=== PATIENT | female | born 2005 | race Caucasian/White ===

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

== ENCOUNTER 2024-06-27 18:51 | Emergency (ER) | payer SELFPAY ==
[~2024-06-27] VITALS: Ht 160 cm; Wt 74.1 kg
[2024-06-27 23:16] LABS: BASO % 0.3 % (0.0-1.0); EOS # 0.4 10^3/uL (0.0-0.5); EOS % 6.2 % (0.0-3.0); HEMATOCRIT 39.8 % (36.0-47.0); HEMOGLOBIN 13.5 g/dl (12.0-15.5); LYMPH # 2.3 10^3/uL (1.5-5.0); MEAN CORPUSCULAR HEMOGLOBIN 30.1 pg (27.0-33.0); MEAN CORPUSCULAR HGB CONC 33.9 g/dl (32.0-36.5); MEAN CORPUSCULAR VOLUME 88.6 fl (80.0-96.0); MONO # 0.5 10^3/uL (0.0-0.8); MONO % 7.2 % (2.0-8.0); NEUTROPHILS # 3.4 10^3/uL (1.5-8.5); PLATELET COUNT, AUTOMATED 302 10^3/uL (150-450); RED BLOOD COUNT 4.49 10^6/uL (4.00-5.40); WHITE BLOOD COUNT 6.7 10^3/uL (4.0-10.0)
[2024-06-27 23:46] LABS: HCG, SERUM QUALITATIVE NEGATIVE (NEGATIVE)
[2024-06-27 23:53] LABS: BLOOD UREA NITROGEN 18 MG/DL (9-23); CALCIUM LEVEL 9.3 MG/DL (8.5-10.1); CARBON DIOXIDE LEVEL 27 MMOL/L (20-31); CHLORIDE LEVEL 108 MMOL/L (98-107); CREATININE FOR GFR 0.73 MG/DL (0.55-1.30); GLUCOSE, FASTING 86 MG/DL (60-100); POTASSIUM SERUM 4.2 MMOL/L (3.5-5.1); SODIUM LEVEL 144 MMOL/L (136-145)
[2024-06-28 01:44] LABS: ALBUMIN 4.4 G/DL (3.2-5.2); ALKALINE PHOSPHATASE 77 U/L (35-104); ALT/SGPT 15 U/L (7.0-40); AST/SGOT 8 U/L (<34); BILIRUBIN,DIRECT < 0.1 MG/DL (<0.4); BILIRUBIN,TOTAL 0.2 MG/DL (0.3-1.2); MAGNESIUM LEVEL 2.2 MG/DL (1.8-2.4); TOTAL PROTEIN 7.8 G/DL (5.7-8.2)
[2024-06-28] MEDS: NS (Normal Saline) 0.9% 1,000 ML IV ONE (01:52)
[2024-06-28] MEDS: MECLIZINE 25 MG TABLET PO ONE (01:52)
[2024-06-28] MEDS: METOCLOPRAMIDE INJ 10MG/2ML VIAL IV ONE (01:52)
[2024-06-28] MEDS ORDERED: MECL-136 PO (04:07)
[2024-06-28 04:51] VITALS: BP 109/63; TEMP 97.7; O2SAT 99
== END 2024-06-28 04:54 | disposition home or self-care (01) ==
LOC: M ED 18:51
DX: H81.4 Vertigo of central origin (principal); F17.290 Nicotine dependence, other tobacco product, uncomplicated; Z88.0 Allergy status to penicillin; Z79.899 Other long term (current) drug therapy
CPT/HCPCS: 70450; 80048; 80076; 83735; 84443; 84703; 85025; 93005; 96361; 96374; 99285; J2765